=== PATIENT | female | born 1940 | race Caucasian/White ===

== ENCOUNTER → 2017-11-16 07:49 | Outpatient (CLI) | payer MEDICARE, OTHER, SELFPAY ==
[2017-11-16 10:28] LABS: AST(SGOT) 12 U/L (15-37); Alanine Aminotransfer ALT/SGPT 16 U/L (13-56); Anion Gap 9 (5-15); BUN 9 mg/dL (7-18); BUN/Creat Ratio 9.6 RATIO (10-20); Calcium,Total 9.2 mg/dL (8.5-10.1); Chloride 105 mmol/L (98-107); Cholesterol 145 mg/dL (200); Creatinine, Serum 0.93 mg/dL (0.55-1.02); EST Glomerular Filtration Rate 62 mL/min (>60); Est Glom Filt Rate - Afr Amer 75 mL/min (>60); Glucose 88 mg/dL (74-106); High Density Lipoprotein 48 mg/dL; Potassium 3.5 mmol/L (3.5-5.1); Sodium Level 140 mmol/L (136-145); Triglycerides 147 mg/dL; Very Low Density Lipoprotein 29 mg/dL (5-40)
== END ==
PROVIDERS: Family Provider Family Medicine; PCP Family Medicine; Visit Provider Family Medicine
DX: E78.5 Hyperlipidemia, unspecified (principal)
CPT/HCPCS: 36415; 80048; 80061; 84450; 84460

== ENCOUNTER → 2019-04-19 08:14 | Outpatient (CLI) | payer MEDICARE, OTHER, SELFPAY ==
--- NOTE | 2019-04-19 08:17 | BI_ITS ---
MAMMOGRAPHY - BILATERAL SCREENING REASON FOR EXAM: Female, 79 years old. Routine annual screening examination. PERTINENT HISTORY: Non-contributory. TECHNIQUE: Digital bilateral breast aubrey (3D mammographic acquisition) in the CC and MLO projections. 2-D mediolateral oblique (MLO) and craniocaudad (CC) views of both breasts were obtained. CAD: Full Field Digital Mammography with Computer Added Detection was performed. COMPARISON: Comparison is made with prior examination dated May 26, 2017 and June 12, 2015. FINDINGS: Breast Composition: There are scattered areas of fibroglandular density. There are no dominant masses or suspicious calcifications. Stable small benign-appearing bilateral axillary lymph nodes. No other significant abnormalities are identified. There has been no significant change since the prior study. BI/SCREEN MAMM (CAD) W/AUBREY BILAT IMPRESSION: Stable bilateral screening mammogram. Yearly follow-up mammogram recommended. (A) ASSESSMENT CATEGORY: BIRADS Category 2: Benign. A letter regarding these results will be sent to the patient by the facility within 30 days. Approximately 10% of breast cancers are not detected by mammography. A normal mammogram should not delay biopsy of a clinically suspicious abnormality. [id number] Electronically Signed: Jt Moon, at 9:39 EDT , Service support ,
== END ==
PROVIDERS: Family Provider Family Medicine; PCP Family Medicine; Referring Provider Nurse Practitioner Adult Health; Visit Provider Nurse Practitioner Adult Health
DX: Z12.31 Encounter for screening mammogram for malignant neoplasm of breast (principal)
CPT/HCPCS: 77063; 77067

== ENCOUNTER → 2021-04-09 08:06 | Outpatient (CLI) | payer MEDICARE, OTHER, SELFPAY ==
[2021-04-09 10:04] LABS: ALB/GLOB Ratio 0.9 RATIO (0.9-2.4); AST(SGOT) 13 U/L (15-37); Alanine Aminotransfer ALT/SGPT 17 U/L (13-56); Albumin, Serum 3.6 g/dL (3.2-5.0); Alkaline Phosphatase 54 U/L (45-117); Anion Gap 6 (5-15); BUN 9 mg/dL (7-18); BUN/Creat Ratio 8.8 RATIO (10-20); Calcium,Total 9.3 mg/dL (8.5-10.1); Chloride 103 mmol/L (98-107); Cholesterol 151 mg/dL (200); Creatinine, Serum 1.02 mg/dL (0.55-1.02); EST Glomerular Filtration Rate 55 mL/min (>60); Est Glom Filt Rate - Afr Amer 67 mL/min (>60); Globulin 3.8 g/dL (2.2-4.2); Glucose 91 mg/dL (74-106); High Density Lipoprotein 60 mg/dL; Potassium 3.5 mmol/L (3.5-5.1); Protein, Total 7.4 g/dL (6.4-8.2); Sodium Level 140 mmol/L (136-145); Triglycerides 111 mg/dL; Very Low Density Lipoprotein 22 mg/dL (5-40)
== END ==
PROVIDERS: PCP Family Medicine; Referring Provider Nurse Practitioner Family; Visit Provider Nurse Practitioner Family
DX: E78.5 Hyperlipidemia, unspecified (principal); I10 Essential (primary) hypertension
CPT/HCPCS: 36415; 80053; 80061

== ENCOUNTER → 2022-04-28 | Outpatient (CLI) | payer MEDICARE, OTHER, SELFPAY ==
[2022-04-28 11:34] LABS: Anion Gap 4 (5-15); BUN 11 mg/dL (7-18); BUN/Creat Ratio 12.8 RATIO (10-20); Calcium,Total 9.4 mg/dL (8.5-10.1); Chloride 106 mmol/L (98-107); Cholesterol 160 mg/dL (200); Creatinine, Serum 0.86 mg/dL (0.55-1.02); EST Glomerular Filtration Rate 67 mL/min (>60); Est Glom Filt Rate - Afr Amer 81 mL/min (>60); Glucose 97 mg/dL (74-106); High Density Lipoprotein 58 mg/dL; Potassium 3.5 mmol/L (3.5-5.1); Sodium Level 140 mmol/L (136-145); Triglycerides 134 mg/dL; Very Low Density Lipoprotein 27 mg/dL (5-40)
== END | disposition home or self-care (01) ==
LOC: MFPLAB 08:50
PROVIDERS: PCP Family Medicine; Referring Provider Family Medicine; Visit Provider Family Medicine
DX: I10 Essential (primary) hypertension (principal)
CPT/HCPCS: 36415; 80048; 80061

== ENCOUNTER → 2022-12-09 | Outpatient (CLI) | payer MEDICARE, OTHER, SELFPAY | END | disposition home or self-care (01) | LOC: LABSPEC 15:38 | PROVIDERS: PCP Family Medicine; Referring Provider Family Medicine; Visit Provider Family Medicine | DX: N89.8 Other specified noninflammatory disorders of vagina (principal) | CPT/HCPCS: 87070; 87077; 87186; 87205 ==

== ENCOUNTER 2023-02-01 06:47 | Observation (INO) | payer MEDICARE, OTHER, SELFPAY ==
--- NOTE | 2023-01-12 10:52 | EKG12_ITS ---
Test Reason : PRE-OP Blood Pressure : / mmHG Vent. Rate : 081 BPM Atrial Rate : 081 BPM P-R Int : 162 ms QRS Dur : 064 ms QT Int : 374 ms P-R-T Axes : 065 042 060 degrees QTc Int : 434 ms Normal sinus rhythm Low voltage QRS Borderline ECG Confirmed by MISA MCFADDEN, NICOLE ([id number]), writer editor ROBERTO MURRIETA ([id number]) on 01/12/2023 2:31:15 PM Referred By: Johnny Joel Confirmed By:NICOLE BYNUM MD
[2023-01-12 11:43] LABS: Absolute Lymphocyte Count 1.92 X10^3/uL (0.83-4.51); Absolute Neutrophil Count 3.5 X10^3/uL (2.0-7.7); Basophil# 0.04 X10^3/uL; Basophil% 0.7 % (0-1); Eosinophil# 0.19 X10^3/uL; Eosinophils% 3.1 % (0-5); Hematocrit 40.3 % (37-47); Lymphocyte # 1.92 X10^3/ul (0.83-4.51); Lymphocyte % 31.5 % (19-41); Mean Corp Hgb Conc 32.3 g/dL (32-36); Mean Corpuscular Hgb 30.7 pg (27.0-32.0); Mean Corpuscular Volume 95.3 fL (81-99); Mean Platelet Vol. 9.3 fl (6.2-12.0); Monocyte# 0.47 X10^3/uL; Monocyte% 7.7 % (0-10); NRBC Flagged by Analyzer 0 % (0-5); Neutrophil # 3.45 X10^3/uL (2.7-7.7); Neutrophil % 56.7 % (47-70); Platelet Count 360 K/mm3 (150-450); RBC Distribution Width CV 13.6 % (11.6-14.6); RBC Distribution Width SD 47.6 fl (35.1-43.9); Red Blood Count 4.23 M/mm3 (4.2-5.4); White Blood Count 6.1 K/mm3 (4.4-11.0)
[2023-01-12 12:09] LABS: Albumin, Serum 3.6 g/dL (3.2-5.0); Anion Gap 9 (5-15); BUN 13 mg/dL (7-18); BUN/Creat Ratio 13.1 RATIO (10-20); Calcium,Total 9.4 mg/dL (8.5-10.1); Chloride 102 mmol/L (98-107); EST Glomerular Filtration Rate 57 mL/min (>60); Est Glom Filt Rate - Afr Amer 69 mL/min (>60); Glucose 154 mg/dL (74-106); Potassium 3.3 mmol/L (3.5-5.1); Sodium Level 139 mmol/L (136-145)
[2023-01-12 12:11] LABS: Magnesium 2.2 mg/dL (1.6-2.6)
--- NOTE | 2023-01-20 16:42 | HP.PCM_ITS ---
History and Physical History and Physical? Patient Name: Carmella Hoang : 1940 From:? HEATHER EDWARDS PA-C? DATE OF PRE-OPERATIVE EXAM: 01/20/2023 DATE OF SURGERY:? 02/01/2023 SCHEDULED PROCEDURE: Left total hip arthroplasty? HISTORY OF PRESENT ILLNESS: Preoperative history and physical exam was performed on January 20, 2023.? This is an 82-year-old female who has had ongoing stiffness and limp with her left lower extremity for over 5 years.? She has not had significant pain associated with this.? Patient states the stiffness occasionally wakens her at nighttime.? She has tried home exercises in the past.? She denies past history of surgery on the left hip.? Her main complaint is stiffness in the hip.? X-rays reveal severe left hip severe [id number] erosive osteoarthritis with large cyst in the femoral head and flattening of the femoral head.? We have obtain surgical clearance from her primary care physician Dr. Shirley.? Patient has medical history pertinent for hypertension, hypercholesterolemia and hypokalemia.? She denies past history of DVT or pulmonary embolism.? There is been no recent chest pain, shortness of breath, fevers chills or recent infections.? After failing conservative measures and discussing all treatment options was Dr. Johnny Joel, the patient does wish to proceed with left total hip arthroplasty.? Patient is currently on hormone therapy and we will proceed with Rivaroxaban postoperatively for DVT prophylaxis for the first 2 weeks.? Patient states that she has always for many years taken aspirin 325 mg twice daily.? She has done this on her own.? She will stop the aspirin 5 days prior to surgery.? She will hold off of take an aspirin postoperatively while on the Rivaroxaban. REVIEW OF SYSTEMS: Review Of Systems: Constitutional: Denies change in appetite, fever and weight change. Cardiovasular: Denies chest pain, heart murmur and irregular heartbeat. Respiratory: Denies cough, pneumonia, shortness of breath, tuberculosis and wheezing. Gastrointestinal: Reports constipation, but denies diarrhea, heartburn, nausea, rectal itching, bloody stools and vomiting. Musculoskeletal: Denies leg swelling, pain, trouble walking and weakness. Skin: Denies Raynaud's, history of shingles and tattoo. Neurological: Denies ambulatory dysfunction, dizziness, numbness/tingling and tremor. Psychiatric: Denies anxiety, insomnia and stress. Hematologic/Lymphatic: Denies anemia, bleeding/bruising tendency and past transfusion. Reviewed and updated. PAST MEDICAL HISTORY: Advance Care Plan: Other Directive, POA Effective Date: 10/05/2022 Other Directive, LIVING WILL Effective Date: 10/05/2022 Past Medical History: Medical Problems: Hard of Hearing, High Blood Pressure, Hypercholesterolemia, Covid-19 Vaccine, Hypopotassium Accidents: None Surgical Hx: Hysterectomy - (2012) Anesthesia Complications: Nausea Assistive Devices: Dentures, Glasses Reviewed and updated. 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 Personal Habits:? Cigarette Use: Former.Smokeless Tobacco: Never Used Smokeless Tobacco.E-Cigarette Use: Never used.Alcohol: Denies use.Drug Use: Denies Use.Enjoy Exercising: Never Exercises. Reviewed, no changes. VITALS: Ht: 65.5 Wt: 180lb Wt k.648 BMI: 29.5 BP: 148/92 Pulse: 54 Resp: 12 T: 97.5 T: 36.4C Pain Level: 0 O2SatR: 99 ALLERGIES: Codeine? MEDICATIONS: Simvastatin 40 mg one tab once daily po, Hydrochlorothiazide 25 mg one tab once daily PO, Aspirin Adult 325 mg one tab PO bid, Iron 325 (65 Fe) MG one tab PO every other day, Doxazosin Mesylate 2 mg one tab once daily PO, Vitamin B12 1000 mcg 1 by mouth every day, Vitamin E 180 MG (400 Unit) one cap once daily PO, Multivitamin Adult? one tab PO once daily, Potassium Chloride Priscilla ER 20 Meq 1 by mouth every day, Biotin 10 mg one tab once daily PO, Estradiol/Norethindrone Acetate 1-0.5 mg one tab PO three days on, one day off, Clonidine HCL 0.2 mg one tab PO bid, Magnesium Oxide 400 mg 1/day, Calcium & Vitamin D3 Bonehealth? daily, Vitafusion D3? d3 50mg, Protein Drinks? 15mg daily PRE-OP EXAM:? General appearance:NORMAL? ? ? Other: Eyes: Conjunctivae and lids: NORMAL? Pupils: ERR Ears, Nose, Mouth, and Throat: NORMAL? Other: Inspection of lips, teeth and gums: NORMAL? ?Other: Neck: Examination of neck: no masses noted. Respiratory: Assessment of respiratory effort: NORMAL? ?Other: ?Auscultation of lungs: clear to auscultation no wheezes, rhonchi or rales. Cardiovascular:? Auscultation of heart: regular rate and rhythm, no murmurs, gallops or rubs. PHYSICAL EXAMINATION: Patient does walk with an antalgic gait.? Left hip range of motion 105 flexion, internal rotation 5, external rotation 25 with increased pain.? She has a 3 mm shorter left leg when compared to right leg.? Sensation intact to light touch. IMAGING STUDIES: Previous x-rays of the left hip reveal severe joint space narrowing, subchondral sclerosis, osteophyte formation consistent with severe stage IV [id number] erosive osteoarthritis.? There is also a large cyst in the femoral head and flattening of the femoral head IMPRESSION: 1.? Severe left hip osteoarthritis 2.? Hypertension 3.? Hypercholesterolemia 4.? Hypokalemia PLAN: Dr. Johnny Joel did discuss and review with the patient all treatment options including surgical versus nonsurgical options.? Patient does wish to proceed with the above-stated procedure.? Potential risks, benefits, and complications of the procedure were discussed in detail including but not limited to , infection, nerve and blood vessel damage, persistent pain, numbness, tingling, paresthesias, blood clot, pulmonary embolism, and requirement for possible further surgery.? The patient expressed full understanding and has no further questions for the doctor.? Patient does agree to proceed with the above-stated procedure and has signed the surgery consent form. POST-OP MEDICATION PLAN: DVT Prophylaxis: Due to patient being on hormone therapy we will proceed with Rivaroxaban 10 mg 1 tablet daily for 2 weeks postoperatively.? This will be followed by aspirin 325 mg twice daily for an additional 2 weeks.? This was discussed in detail with patient.? She voiced understanding. This dictation was created using voice recognition software. Phonetic and/or grammatical errors may exist. ___? I have re-examined the patient.? There are no clinical changes since date of exam. ___? See progress notes for changes. ___? Dictated on admission Date: ? ? ?Time: Signature:
[2023-02-01] VITALS (18 sets, daily range): BP systolic 84–157; BP diastolic 42–81; PULSE 56–96; RESP 16–18; TEMP 36.3–37; O2SAT 93–100; BMI 28.7
[2023-02-01] MEDS: Lactated Ringers 1,000 ML 125 ML IV ×4 (06:22→12:09)
[2023-02-01] MEDS: Celecoxib 200 MG Capsule 400 MG PO (06:23)
[2023-02-01] MEDS: Acetaminophen 500 MG Tablet 1000 MG PO ×3 (06:24→22:14)
[2023-02-01] MEDS: Gabapentin 600 MG Tablet PO (06:24)
[2023-02-01] MEDS: Magnesium 1 GM over 15 mins IV (06:25)
--- NOTE | 2023-02-01 06:30 | RAD_ITS ---
HISTORY: PAIN COMPARISON: Hip radiograph on same day TECHNIQUE: A total of 2 fluoroscopic images were saved without a radiologist present. FINDINGS: Images demonstrate left hip arthroplasty. Total fluoroscopy time: 6.7 seconds Cumulative dose: 1.15 mGy RAD/Hip 1 view with Pelvis IMPRESSION: Fluoroscopic assistance for left hip arthroplasty. Please see operative report for additional information. Electronically Signed: Song Singh MD at 7:30 EDT ,
[2023-02-01 06:33] LABS: Bedside Glucose 107 mg/dL (74-106)
--- NOTE | 2023-02-01 06:51 | PCM.OPRPT ---
Report of Operation Date of Procedure: 02/01/23 Pre-Operative Diagnosis: Left hip primary osteoarthritis Post-Operative Diagnosis: Left hip primary osteoarthritis Surgery/Procedure Performed:: Left minimally invasive direct anterior hip replacement Description of Surgical Findings:: Stable hip with equal leg lengths Surgeon: Johnny Joel motel manager: Daniel Betancourt Type of Anesthesia: General Anesthesiologist: Conner Reyna Special Medications: 2 g Ancef, 1 g TXA at incision, 1 g TXA closure, 10 mg Decadron, joint cocktail (5 mg Duramorph, 30 mL of 0.5% Ropivicaine, 1000 units of epinephrine, 30 mg of Toradol) Specimen's removed: Bony cuts Estimated Blood Loss (mL): 300 Fluids Replaced: 1000 ml Description of Procedure: Components used: 1. Insignia Jae femoral stem size 5 high offset 2. Jae trident 2 acetabular shell size 52 mm 3. Jae X3 polyethylene E 4. Jae Biolox delta 36 mm, 7.5 mm femoral head Brief history operative indications: 83 yo F who failed conservative measures for their hip osteoarthritis. X-rays were consistent with osteoarthritis including joint space narrowing, osteophyte formation and subchondral cysts. Total hip replacement was discussed with the patient with risks and benefits including but not limited to blood loss, DVTs, PEs, neurovascular damage, dislocation, general risks of anesthesia including loss of life. Patient demonstrated an understanding medical clearance is obtained the patient was consented for surgery. Procedure: On the date of procedure the patient's L hip was marked in the preoperative area. Patient was then taken back to the operating room where anesthesia assumed control of the C-spine and airway and administered anesthetic. Patient was transferred to the operating table and placed in the supine position. The hips were placed at the break of the bed and a sacral bump was placed. L The lower extremity was then prepped out in a sterile fashion using chlorhexidine while the surgeon scrubbed. The PA was vital in the positioning of the patient. Upon reentering the room the left lower extremity was draped in the standard orthopedic fashion and the incision was marked. A timeout was called and everyone agreed upon the side, the site, the procedure be performed, antibody given, and patient's identity. At this time incision was made through skin, subcutaneous tissue, and fat down to fascia. The fascia was then incised and the TFL was retracted laterally. A retractor was placed on the lateral border of the femoral neck. Attention was directed to the inferior portion of the approach and all crossing vessels were identified and appropriately coagulated. A retractor was then placed on the medial portion of the femoral neck. The anterior capsule was then cleared of all soft tissue and then H shaped capsulotomy was made. The retractors were then placed inside the capsule. The femoral neck was identified and a cleanup cut was made. At this time a power corkscrew was used to remove the femoral head. Attention was then turned toward the acetabulum where the soft tissues were appropriately retracted and the acetabulum was sequentially reamed to 52 mm. A 52 mm cup was then selected and impacted into place. Acetabular liner was impacted into place and locking mechanism was verified. The position of the acetabular cup was then verified under live fluoroscopy. Attention was then turned to the femur. Soft tissue releases on the medial and lateral femoral neck were appropriately done, the leg was externally rotated and lateralized. A Morley retractor was placed medially and proximally to the greater trochanter this allowed appropriate visualization and exposure of the femoral canal. Rongeour was then used to remove excess lateral bone. A canal finder and entry broach were used to open the proximal canal. Once we verified we were down the femoral canal we subsequently broached up to a size 5 femur. The appropriate neck was placed in the previously selected head was trialed with a 7.5 mm neck. Traction was pulled and the hip was reduced with internal rotation. Once it was appropriately reduced and stability was checked. There was minimal shuck, equal leg lengths and appropriate stability with hyperextension and external rotation as well as with 90? flexion and internal rotation. Fluoroscopy was then also used to verify the position of the components and leg lengths using the contralateral side for comparison. The trial components were then dislocated the proximal femur was again exposed and the components were removed from the wound. The final components were verified and opened. The wound was copiously irrigated out with normal saline. The acetabulum was checked for any residual debris. The final components were placed and impacted. Traction and internal rotation were again used to reduce the hip. After adequate reduction the hip remained stable with appropriate leg lengths. The final components were once again checked with live fluoroscopy and were found to be satisfactory. The wound was then copiously irrigated with normal saline once more, and hemostasis was obtained. Closure was then done using #1 Vicryl runner to close the fascia. A 2-0 vicryl interuppted sutures were used to close the subcutaneous skin. A 3-0 Monocryl and Steri-Strips were used for final skin closure. A Silverlon dressing was placed. Patient was awakened by anesthesia and transferred [facility]. Patient was then transferred to the PACU for recovery. During the course of the procedure the physician merchandise presentation associate (PE) played a vital role. Their intimate knowledge of my steps in the procedure aided in safe and expedient completion of the procedure. The PE played a vital rolls in positioning particularly in obtaining the appropriate positioning of the sacral bump. The PE was also vital in the retraction of soft tissues during the exposure and especially the femoral work as this is a vital part of the procedure to prevent complications and fractures. The PE was also vital and protecting soft tissues during times of bony cuts and reaming. He also played a vital role in closure with my direct supervision. The PE was also important during reduction and dislocation of the joint and trials intraoperatively. Postoperative plan: Patient will get 24 hours postop antibiotics. Patient will get in-house physical therapy and will be weight-bear as tolerated. Patient will follow up in office in 2 weeks for a wound check and x-rays. Xarelto 10 mg daily for 2 weeks followed by aspirin 81 mg twice daily for 2 weeks secondary to hormone replacement therapy. Complications No intraoperative complications Admit VTE Documentation VTE Present on Admission: No VTE Mechan Device Prophylaxis: SCD's and Thigh High LESLIE Hose VTE Pharm Prophylaxis ordered?: Yes
[2023-02-01] MEDS: Cefazolin 2 GM in 0.9% Normal Saline 100 ML IV (07:30)
--- NOTE | 2023-02-01 07:30 | HIP_PTH ---
PATIENT: TIFFANY HINOJOSA LOC: MS3 U#:[id number] AGE/SX: 83/F ROOM: [facility] [place] RE02/01/[address]: Dr. Johnny Joel MD : 1940 BED: 1 DIS: 02/02/2023 SPEC #: [id number] RECD: 02/01/23 11:32 STATUS: ONEL DELUCA #: [id number] SANDRITA: 02/01/23 07:[address]: Johnny Joel DEPT: SURGICAL PATHOLOGY RECD BY: Demetria Vo ENTERED: 02/01/23 13:28 SP TYPE: TOTAL HIP OTHR DR: Dr. Franca Shirley MD Tissues: Hip, NOS Procedures: Decalcification bone/plaque Surgery Specimen Level IV HEADER OPERATION: ERAS, total hip anterior approach PRE-OP DIAGNOSIS: Left hip primary osteoarthritis TISSUE SUBMITTED: Bone - left hip MICROSCOPIC DIAGNOSIS Bone and tissue of left hip, total hip resection: Severe degenerative joint disease. AM:shamar 02/06/2023 MICROSCOPIC DESCRIPTION Slides are reviewed. GROSS DESCRIPTION Received is one container labeled with the patient's name and designated bone left hip. The specimen consists of a schofield femoral head measuring 5.5 x 5.0 x 5.0 cm. The articular surface displays prominent osteophyte formation, eburnation and bone erosion. Also present in the specimen container are multiple irregular fragments of bone reamings and bone fragments measuring in aggregate 7.0 x 5.0 x 2.0 cm. Dairy Lab Technician sections are submitted in two cassettes after decalcification as follows: 1 - bone reamings, 2 - bone. / AM:shamar 02/01/2023 TC:5 CPT: 61837, 21600
[2023-02-01] MEDS: dexAMETHasone 10 MG/ML Vial IV (07:40)
[2023-02-01] MEDS: TXA 1000mg in NS100 100ml (IVPB at Closure) 660 MG IV (07:40)
[2023-02-01] MEDS: TXA 1000mg in NS100 100ml (IVPB at Incision) 660 MG IV (08:33)
[2023-02-01] MEDS: JPS (Morphine 10mg/ml) OPERA.SITE (08:43)
--- NOTE | 2023-02-01 09:28 | RAD_ITS ---
STUDY: X-RAY - PELVIS AND LEFT HIP REASON FOR EXAM: Female, 83 years old. Post Op -- AP both hips on single saravanan/lateral of op hip PACU TECHNIQUE: 2 views of the pelvis and hip. COMPARISON: None. FINDINGS: The patient is status post left total hip replacement. There is good alignment. Postoperative soft tissue changes. RAD/Hip Min 2 Views (Portable) IMPRESSION: The patient is status post left total hip replacement. There is good alignment. Postoperative soft tissue changes. Electronically Signed: Jt Moon MD at 9:42 EDT ,
[2023-02-01] MEDS: proMETHazine 25 MG/ML Syringe 12.5 MG IM (12:54)
--- NOTE | 2023-02-01 13:14 | PCM.CONS.GEN ---
Assessment & Plan Assessment/Plan (1) Arthritis: (2) Hypertension: QUALIFIERS: Hypertension type: primary hypertension Qualified Code(s): I10 - Essential (primary) hypertension PLAN: Plan This 84-year-old female being admitted for elective left hip total replacement. 1. Left hip primary osteoarthritis status post left minimally invasive direct anterior hip replacement on 02/01/2023: Patient just returned from surgery. Mild lethargy and nausea from anesthesia. Pain control. Conservative symptomatic management for nausea. Patient on rivaroxaban 10 mg daily for DVT prophylaxis. Incentive spirometry. PT and OT ordered. 2. High protein: Current BP is 106/83. Patient blood pressure was on lower side during anesthesia, systolic 80s. Currently getting Ringer lactate at 125 mill per hour. Hold antihypertensive medication, patient is on HCTZ 12.5 mg twice daily. Start tomorrow if blood pressure is in the 130/80 with HCTZ 12.5 mg once daily. 3. Dyslipidemia: Patient on atorvastatin 20 mg daily at bedtime 4. Other comorbidities include history of migraine headache, prolapsed bladder, chronic constipation and former smoker: Stool softener senna S 2 tablet twice daily. MiraLAX 17 g daily. Patient currently not having headache and no acute issues with history of migraine headache. DVT prophylaxis: On rivaroxaban 10 mg daily HPI Consult Data Date of Consult: 02/01/23 HPI Narrative HPI Narrative: TIFFANY HINOJOSA, is a 83 F was admitted for elective left total hip replacement. Patient has left lower extremity stiffness limping and discomfort for more than 5 years. Patient did not complain of significant pain. Patient failed conservative management including home exercise PT. X-ray showed severe left hip [id number] erosive arthritis with large cyst with femoral head. Past medical history: Hypertension, dyslipidemia and hypokalemia. No history of DVT or pulmonary embolism. Patient just returned from surgery and she is mild nauseated but no vomiting. She had Zofran. Denies chest pain pressure tightness. No shortness of breath. No dizziness or lightheadedness. She has mild lethargy/sleepy from anesthesia. No fever or recent URI or DVT. [facility] Medical History (Updated 02/01/23 @ 14:[address] Denis Freire MD) Arthritis Bladder disease Constipation Former smoker High cholesterol Hypertension Migraine headache Post-menopausal Wears dentures Wears glasses Wears hearing aid Home Medications Calcium 600 + D(3) 600 mg PO DAILY 01/06/23 [History Last Taken 01/26/23] Potassium-99 99 mg PO DAILY 01/06/23 [History Last Taken 01/26/23] VITAFUSION 50 mg PO DAILY 01/06/23 [History Last Taken 01/26/23] Vitamin L64-[id number] 1,000 mg PO DAILY 01/06/23 [History Last Taken 01/26/23] aspirin 650 mg PO DAILY 01/06/23 [History Last Taken 01/26/23] biotin 10,000 mg PO .EVERY 3 DAYS 01/06/23 [History Last Taken 01/26/23] clonidine HCl 0.2 mg tablet 0.2 mg PO BID 01/06/23 [History Last Taken 02/01/23 05:00] docusate sodium 100 mg capsule (Colace) 100 mg PO DAILY 01/06/23 [History Last Taken 01/30/23] doxazosin 2 mg tablet 2 mg PO QHS 01/06/23 [History Last Taken 01/31/23] estradiol-norethindrone acet 0.5 mg-0.1 mg tablet 1 tab PO .EVERY 3 DAYS 01/06/23 [History Last Taken 01/31/23] ferrous sulfate 325 mg (65 mg iron) tablet (iron) 325 mg PO QODAY 01/06/23 [History Last Taken 01/26/23] food supplemt, lactose-reduced (Nutritional Shake oral liquid) 15 ml PO DAILY 01/06/23 [History Last Taken 01/26/23] hydrochlorothiazide 25 mg tablet 12.5 mg PO BID 01/06/23 [History Last Taken 01/31/23] magnesium 400 mg PO DAILY 01/06/23 [History Last Taken 01/26/23] multivitamin (Daily Multi-Vitamin tablet) 1 tab PO DAILY 01/06/23 [History Last Taken 01/26/23] peg [id number] 1 %-0.2 %-0.2 % eye drops (Dry Eye Relief) 1 drp EACH EYE DAILY 01/06/23 [History Last Taken 01/31/23] simvastatin 40 mg tablet 40 mg PO QHS 01/06/23 [History Last Taken 01/31/23] Allergy/AdvReac Type Severity Reaction Status Date / Time codeine AdvReac Mild Vomiting Verified 01/06/23 09:57 Family History (Updated 02/01/23 @ 14:[address] Denis Freire MD) Other Arthritis Hypertension Surgical History Hx of hysterectomy Hx of left cataract extraction Hx of right cataract extraction Social History Smoking Status: Former smoker ROS ROS Narrative Constitutional: Chronic left hip stiffness and limping. No fever. HEENT: Reports systems reviewed and no addt'l complaints, except as documented Respiratory/Chest: No acute shortness of breath or respiratory distress or wheezing. CVS: Chest pain pressure or tightness. Gastrointestinal: Mild nausea denies coffee ground emesis, hematemesis or vomiting Genitourinary: No catheter. Denies burning urination or new urinary tract symptoms Musculoskeletal: Chronic left hip primary osteoarthritis and limited range of motion. No acute injury Neurologic: Denies seizure-like symptoms. No history of stroke. skin: No ulcer. No rash Endocrinology: Reports systems reviewed and no addt'l complaints, except as documented Hematologic/Lymphatic: Reports systems reviewed and no addt'l complaints, except as documented Rest 14 ROS are negative except as mentioned in HPI Physical Exam Narrative General: Mild neurology and lethargy from anesthesia. Mild nauseated. HEENT: Atraumatic, PERRLA, EOMI, Normocephalic Oral: Oral mucosa dry. No Gingival or Mucosal Lesions/ Ulcerations Neck: Supple, No JVD, Negative Carotid Bruits Lungs: Air entry diminished in bilateral lung bases. No crepitation/rhonchi Cardiovascular: Regular rate, Regular Rhythm, Normal S1, Normal S2, No murmurs Abdomen: Bowel Sounds Present, Soft, Non Tender, Non-Distended : No renal angle tenderness. No suprapubic tenderness. Extremities: No edema, Capillary Refill Less than 3 Seconds Skin: No rashes, No breakdown Musculoskeletal: Left hip THR. Surgical dressing is dry. No hematoma or bruise. No Tenderness to Palpation of other joints or Extremities Neurological: Cranial nerves II-XII grossly intact, DTR 2+/4. No acute focal neurological deficit Psych/Mental Status: Flat affect, lethargy Lab / Micro Data 01/12/23 11:10 01/12/23 11:10 Labs: Laboratory Results - last 24 hr 02/01/23 05:53: POC Glucose 107 H Radiology Impression Hip X-Ray 02/01/23 09:28 IMPRESSION: The patient is status post left total hip replacement. There is good alignment. Postoperative soft tissue changes. Electronically Signed: Jt Moon MD at 9:42 EDT , Charges/Coding Visit Charges Office Visits / Consults: 09234 OP Consult L4
[2023-02-01] MEDS: Cefazolin 1 GM/50 ML BAG IV ×2 (15:13→23:30)
--- NOTE | 2023-02-01 15:53 | CASEMGMT ---
IVETTE PHOENIX Assessment: Face to Face with pt for initial transition planning/care coordination assessment. IVETTE PHOENIX introduced self and role at [facility], pt voices understanding and consents to assessment. Pt is A/O x3, drowsy but answers all questions appropriately at this time. Care providers, pharmacy, and demographics verified/updated. Admitting Dx: Lt total hip anterior approach PCP:[place] Specialists:tootie Joel [facility]acy: [facility] Insurance: [facility], [employer] Prescription Benefit: yes LNOK: [employer] Widder, dtr Living Arrangements: Pt lives alone in a single story home with 1 step to enter. Pt reports she is typically I in ADL's and denies concerns at home. Pt granddtr is staying with her for at least the weekend to assist pt. Pt denies concerns at home. Transportation: Pt drives self and denies concerns with transportation. Pt has friends/family lined up to take her to medical appts. DME/HHC/SNF: Pt has a FWW and BSC at home. She has a shower chair that she can borrow if need be. Pt does not use AD. Pt denies hx of HHC or SNF stays. Pt states no concerns with going home at time of dc. Pt has outpt therapy set up at [facility] on Monday. Pt states no further concerns/needs. CM to follow. Advised pt to ask CM if any further question/concerns/needs arise, voices understanding. Pt Goal: Home with granddtr assistance and outpt therapy already set up Plan: Home with granddtr assistance and outpt therapy already set up, pending therapy evals.
[2023-02-01] MEDS: Senna/Docusate Sodium 1 Tablet 2 TABLET PO (22:14)
[2023-02-01] MEDS: Atorvastatin Calcium 20 MG Tablet PO (22:14)
[2023-02-01] MEDS: cloNIDine HCl 0.2 MG Tablet PO (22:14)
[2023-02-01] MEDS: Doxazosin 1 MG Tablet 2 MG PO (23:29)
[2023-02-02 00:35] VITALS: BMI 28.7
[2023-02-02 04:43] VITALS: BMI 28.7
[2023-02-02 05:00] VITALS: BP 143/73; PULSE 80; RESP 18; TEMP 37.1; O2SAT 97
[2023-02-02] MEDS: Acetaminophen 500 MG Tablet 1000 MG PO ×2 (05:31→13:42)
[2023-02-02] MEDS: Rivaroxaban 10 MG Tablet PO (05:31)
[2023-02-02 06:02] LABS: Hematocrit 33.8 % (37-47); Hemoglobin 10.9 g/dL (12.0-15.0); Mean Corp Hgb Conc 32.2 g/dL (32-36); Mean Corpuscular Hgb 30.8 pg (27.0-32.0); Mean Corpuscular Volume 95.5 fL (81-99); Mean Platelet Vol. 9.6 fl (6.2-12.0); Platelet Count 361 K/mm3 (150-450); RBC Distribution Width CV 13.6 % (11.6-14.6); RBC Distribution Width SD 47.8 fl (35.1-43.9); Red Blood Count 3.54 M/mm3 (4.2-5.4); White Blood Count 17.5 K/mm3 (4.4-11.0)
[2023-02-02 06:41] LABS: Anion Gap 5 (5-15); BUN 12 mg/dL (7-18); BUN/Creat Ratio 13.5 RATIO (10-20); Calcium,Total 8.6 mg/dL (8.5-10.1); Chloride 109 mmol/L (98-107); Creatinine, Serum 0.89 mg/dL (0.55-1.02); EST Glomerular Filtration Rate 65 mL/min (>60); Est Glom Filt Rate - Afr Amer 78 mL/min (>60); Estimated Creatinine Clearance 45.62 ml/min; Glucose 96 mg/dL (74-106); Potassium 3.7 mmol/L (3.5-5.1); Sodium Level 140 mmol/L (136-145)
[2023-02-02 07:30] VITALS: O2SAT 98
[2023-02-02] MEDS: Multivitamins,Therapeutic Tablet 1 TABLET PO (08:34)
[2023-02-02] MEDS: hydroCHLOROthiazide 12.5mg 12.5 MG PO (08:35)
[2023-02-02] MEDS: Calcium Carb/Vitamin D 1 TABLET Tablet PO (08:35)
[2023-02-02] MEDS: Magnesium Chloride 64 MG Delay Rel.Tablet 128 MG PO (08:36)
[2023-02-02] MEDS: cloNIDine HCl 0.2 MG Tablet PO (08:38)
[2023-02-02] MEDS: Senna/Docusate Sodium 1 Tablet 2 TABLET PO (08:39)
[2023-02-02] MEDS: Ensure Surgery 237 ML LIQUID PO (08:46)
[2023-02-02] MEDS: Famotidine 20 MG Tablet PO (08:46)
[2023-02-02] MEDS: Aspirin 325 MG Tablet 650 MG PO (08:46)
[2023-02-02] MEDS: Polyethylene Glycol 3350 17 GM PACKET PO (08:48)
[2023-02-02 08:54] VITALS: BP 146/77; PULSE 79; RESP 16; TEMP 37.1; O2SAT 97; BMI 28.7
--- NOTE | 2023-02-02 10:44 | PCM.PN.HOSP ---
Reason for Visit Reason for Visit: Diagnoses Essential (primary) hypertension (02/01/23) Unspecified osteoarthritis, unspecified site (02/01/23) Encounter for other preprocedural examination (02/01/23) Subjective Subjective Doing well today, got up and walked around and reported initially hurt but then began feeling better. No acute medical complaints Objective Data Objective Data Vital Signs: Vital Signs Temp Pulse Resp BP Pulse Ox O2 Del Method O2 Flow Rate 98.7 F 79 16 146/77 H 97 Room Air 2 02/02/23 08:54 02/02/23 08:54 02/02/23 08:54 02/02/23 08:54 02/02/23 08:54 02/02/23 09:59 02/01/23 14:43 FiO2 2 02/01/23 11:30 Oxygen Flow Rate (L/min) 2 Oxygen Delivery Method Room Air Weight: 80.739 kg Body Mass Index (BMI) 28.7 Intake & Output: Intake and Output for Last 24 Hours 01/31/23 02/01/23 02/02/23 23:59 23:59 23:59 Intake Total 4932 / 6932 2050 / 2050 Output Total 400 / 2100 1700 / 1700 Balance 4532 / 4832 350 / 350 Lab / Micro Data 02/02/23 05:17 02/02/23 05:17 Labs: Laboratory Results - last 24 hr 02/02/23 05:17: WBC 17.5 H, RBC 3.54 L, Hgb 10.9 L, Hct 33.8 L, MCV 95.5, MCH 30.8, MCHC 32.2, RDW Std Deviation 47.8 H, RDW Coeff of Shukri 13.6, Plt Count 361, MPV 9.6, Sodium 140, Potassium 3.7, Chloride 109 H, Carbon Dioxide 26.0, Anion Gap 5, BUN 12, Creatinine 0.89, Estim Creat Clear Calc 45.62, Est GFR (MDRD) Af Amer 78, Est GFR (MDRD) Non-Af 65, BUN/Creatinine Ratio 13.5, Glucose 96, Calcium 8.6 Micro: Microbiology 01/12/23 11:10 Swab (Method) Nasal Screen MRSA/MSSA - Final Radiography Diagnostic Testing: Radiology Impression Hip/Pelvis X-Ray 02/01/23 06:30 IMPRESSION: Fluoroscopic assistance for left hip arthroplasty. Please see operative report for additional information. Electronically Signed: Song Singh MD at 7:30 EDT , Hip X-Ray 02/01/23 09:28 IMPRESSION: The patient is status post left total hip replacement. There is good alignment. Postoperative soft tissue changes. Electronically Signed: tJ Moon MD at 9:42 EDT , Physical Exam Narrative General: Alert, oriented, no apparent distress HEENT: Atraumatic, normocephalic Eyes: Anicteric, normal conjunctiva, extraocular movements grossly intact Neck: Supple Respiratory: Clear to auscultation bilaterally, normal respiratory effort Cardiovascular: Regular rate and rhythm GI: Soft, nontender, nondistended Extremities: No edema Musculoskeletal: Moving all extremities Neuro: No overt focal neurological deficits Skin: No rashes appreciated Psych: Cooperative Assessment & Plan Assessment/Plan (1) Arthritis: (2) Hypertension: QUALIFIERS: Hypertension type: primary hypertension Qualified Code(s): I10 - Essential (primary) hypertension PLAN: Plan This 84-year-old female being admitted for elective left hip total replacement. 1. Left hip primary osteoarthritis status post left minimally invasive direct anterior hip replacement on 02/01/2023: Patient just returned from surgery. Mild lethargy and nausea from anesthesia. Pain control. Conservative symptomatic management for nausea. Patient on rivaroxaban 10 mg daily for DVT prophylaxis. Incentive spirometry. PT and OT ordered. -02/02: Patient doing very well today, further dispo per primary 2. High blood pressure: Current BP is 106/83. Patient blood pressure was on lower side during anesthesia, systolic 80s. Currently getting Ringer lactate at 125 mill per hour. Hold antihypertensive medication, patient is on HCTZ 12.5 mg twice daily. Start tomorrow if blood pressure is in the 130/80 with HCTZ 12.5 mg once daily. -8/3: Continue HCTZ once daily, patient also on her home clonidine 3. Dyslipidemia: Patient on atorvastatin 20 mg daily at bedtime 4. Other comorbidities include history of migraine headache, prolapsed bladder, chronic constipation and former smoker: Stool softener senna S 2 tablet twice daily. MiraLAX 17 g daily. Patient currently not having headache and no acute issues with history of migraine headache. -02/02: Patient with no medical complaints today, okay to discharge from medical perspective. DVT prophylaxis: On rivaroxaban 10 mg daily Charges/Coding Visit Charges Inpatient E&M: 97492 Subs Hosp L1
--- NOTE | 2023-02-02 11:02 | PN.ORTHO_ITS ---
Subjective Subjective The patient was sitting in bedside chair upon examination. Patient denies any chest pain, shortness of breath, dizziness, lightheadedness, nausea or vomiting, or calf pain. Pain is controlled on medications. No adverse overnight events. Patient did have some lower blood pressures yesterday and medications were held. Case was discussed with medicine and with her blood pressure improving she can go back to her normal medications upon discharge. She tolerated therapy very well. Patient currently is on Xarelto postoperatively due to hormone therapy. Overall she is doing well this morning with no significant complaints. Some thigh soreness. She does wish to try to go home today. Objective Data Objective Data Vital Signs: Vital Signs Temp Pulse Resp BP Pulse Ox O2 Del Method O2 Flow Rate 98.7 F 79 16 146/77 H 97 Room Air 2 02/02/23 08:54 02/02/23 08:54 02/02/23 08:54 02/02/23 08:54 02/02/23 08:54 02/02/23 09:59 02/01/23 14:43 FiO2 2 02/01/23 11:30 Oxygen Flow Rate (L/min) 2 Oxygen Delivery Method Room Air Weight: 80.739 kg Body Mass Index (BMI) 28.7 Intake & Output: Intake and Output for Last 24 Hours 01/31/23 02/01/23 02/02/23 23:59 23:59 23:59 Intake Total 4932 / 6932 2050 / 2050 Output Total 400 / 2100 1700 / 1700 Balance 4532 / 4832 350 / 350 Lab / Micro Data 02/02/23 05:17 02/02/23 05:17 Labs: Laboratory Results - last 24 hr 02/02/23 05:17: WBC 17.5 H, RBC 3.54 L, Hgb 10.9 L, Hct 33.8 L, MCV 95.5, MCH 30.8, MCHC 32.2, RDW Std Deviation 47.8 H, RDW Coeff of Shukri 13.6, Plt Count 361, MPV 9.6, Sodium 140, Potassium 3.7, Chloride 109 H, Carbon Dioxide 26.0, Anion Gap 5, BUN 12, Creatinine 0.89, Estim Creat Clear Calc 45.62, Est GFR (MDRD) Af Amer 78, Est GFR (MDRD) Non-Af 65, BUN/Creatinine Ratio 13.5, Glucose 96, Calcium 8.6 Micro: Microbiology 01/12/23 11:10 Swab (Method) Nasal Screen MRSA/MSSA - Final Radiography Diagnostic Testing: Radiology Impression Hip/Pelvis X-Ray 02/01/23 06:30 IMPRESSION: Fluoroscopic assistance for left hip arthroplasty. Please see operative report for additional information. Electronically Signed: Song Singh MD at 7:30 EDT , Hip X-Ray 02/01/23 09:28 IMPRESSION: The patient is status post left total hip replacement. There is good alignment. Postoperative soft tissue changes. Electronically Signed: Jt Moon MD at 9:42 EDT , Physical Exam Narrative Vital signs stable and afebrile. Blood pressures have stabilized Left hip is soft and supple SCDs and LESLIE hose are in place bilaterally Patient is able to plantarflex and dorsiflex actively. Sensation is intact to light touch to saphenous, sural, superficial and deep peroneal, and tibial distribution. Dressing is clean dry and intact. Negative Homans bilaterally, negative signs and symptoms of DVT. Const alert, oriented x3 and no apparent distress Assessment & Plan Assessment/Plan (1) S/P total left hip arthroplasty: PLAN: Plan 1. S/P left direct anterior total hip arthroplasty POD #1 2. Continue Pain Medications: Tylenol and oxycodone 3. DVT Prophylaxis: Xarelto 10 mg once daily for 2 weeks postoperatively due to hormone therapy. After 2 weeks she will go back to her normal aspirin 325 mg twice daily. 4. PT/OT: Weightbearing as tolerated with walker. Patient did well with physical therapy today 5. H & H: 10.9/33.8, asymptomatic. Monitoring patient's hemoglobin and hematocrit with postoperative anemia without any intra operative complications. At this time no treatment is required. 6. Reactive leukocytosis: Currently 17.5, afebrile. Patient did receive Decadron intraoperatively 7. Continue postoperative medical management per medicine: Case was discussed with medicine and she is okay with patient resuming her normal blood pressure medication. I explained to the patient to continue to monitor this while at home and if any complications with her blood pressure she is to contact her primary care physician 8. Encouraged Incentive Spirometry 9. Disposition: Plan will be for discharge home today as patient is medically stable, tolerates therapy and her pain is well controlled. She has outpatient physical therapy established. She would like her medications E scribed to [facility]. She will follow-up per postoperative instructions. She will contact her office upon discharge with any concerns or questions. We did discuss her blood pressure and she will continue to monitor this over the next several days. Contact primary care physician with any complications. Patient also has her own stool softeners at home that she will take. I have reviewed the [place] Automated Rx Reporting System (OARRS) report for this patient for refill pattern and other prescriber involvement as part of the appropriate surveillance for the provision of acute and chronic controlled medications. The report was requested and reviewed on the date of this entry and was considered in the prescribing process. This dictation was created using voice recognition software. Phonetic and/or grammatical errors may exist.
--- NOTE | 2023-02-02 11:07 | DCINST_ITS ---
Discharge Instructions Diet Discharge Diet: No restrictions Activity Discharge Activity: May Not Drive (Until you can walk 100 feet without the use of cane or walker and off all narcotics) May shower in (days): 1 (only if incision is dry and without drainage. Do NOT soak/submerge in tub/pool/grant/stream/hot tub.)) Ice area for (Minutes): 20 (Every 1-2 hours while awake[address] barrier between ice and skin.) Weight Bearing Status: Weight bearing as tolerated Keep extremity elevated above heart level: Operative Extremity Additional Activity Instructions:: Follow [facility] Post-op Instructions. Once postoperative dressing has been removed only use gentle soap and water over the incision. Do not use any ointments, Neosporin, salves, alcohol pads over the incision for 6 weeks postoperatively. Do not submerge underwater for 6 weeks postoperatively. Wear elastic stockings for 2 weeks. Do NOT use alcohol with narcotic pain medication. Do NOT make important decisions while taking narcotic medication. If you have problems with taking your medication (rash, itching, nausea, etc.) call the office at once. Dressing / Incision Call your doctor if your incision/area has: Continuous Slow Oozing, Sudden Increased Bleeding, Increased Pain/ Swelling, Increased Redness and Foul Smelling Discharge Call your doctor if you observe: Fever of 101 or Higher, Shortness of breath, Chest pain, Calf discomfort and Uncontrolled pain Remove Dressing in: 4 days (Okay to remove dressing on February 06, 2023) Additional Dressing/Incision Instructions:: Follow [facility] Post-op Instructions. Once postoperative dressing has been removed, only use gentle soap and water over the incision. Do not use any ointments, Neosporin, salves, alcohol pads over the incision for 6 weeks postoperatively. Do not submerge underwater for 6 weeks postoperatively. Continue with LESLIE hose/elastic stockings for 2 weeks postoperatively. May remove at nighttime but needs to be placed back on the leg during the day. Do NOT use alcohol with narcotic pain medication. Do NOT make important decisions while taking narcotic medication. If you have problems with taking your medication (rash, itching, nausea, etc.) call the office at once. Follow Up Care Test Results: Test results from this visit will be discussed in further detail at your follow- up appointment, if applicable. Discharge Plan Admission Admit Date/Time: 02/01/23 06:47 Attending Provider: Johnny Jole Primary Care Provider: Franca Shirley Consulting Providers: Crys Scruggs Discharge Orders/Prescriptions Prescriptions: New acetaminophen 500 mg Tablet 1,000 mg PO Q8 14 Days Qty: 84 0RF Rx Instructions: Do not take more than 3000 mg Tylenol in a 24-hour period. oxycodone 5 mg Tablet 5 mg PO Q4H PRN PRN (Reason: Pain Score 4-10) 7 Days Qty: 28 0RF Xarelto 10 mg Tablet 10 mg PO DAILY@0600 14 Days Qty: 14 0RF Rx Instructions: Take for 2 weeks postoperatively due to a previous history of DVT Continued clonidine HCl 0.2 mg tablet 0.2 mg PO BID hydrochlorothiazide 25 mg tablet 12.5 mg PO BID simvastatin 40 mg tablet 40 mg PO QHS ferrous sulfate [iron] 325 mg (65 mg iron) tablet 325 mg PO QODAY Vitamin [id number] 1,000 mg PO DAILY multivitamin [Daily Multi-Vitamin] Tablet 1 tab PO DAILY Potassium-99 99 mg PO DAILY doxazosin 2 mg tablet 2 mg PO QHS magnesium 400 mg PO DAILY Calcium 600 + D(3) 600 mg PO DAILY docusate sodium [Colace] 100 mg capsule 100 mg PO DAILY VITAFUSION 50 mg PO DAILY Nutritional Shake Liquid 15 ml PO DAILY estradiol-norethindrone acet 0.5-0.1 mg tablet 1 tab PO .EVERY 3 DAYS biotin 10,000 mg PO .EVERY 3 DAYS Dry Eye Relief 1-0.2-0.2 % drops 1 drp EACH EYE DAILY Discontinued aspirin 650 mg PO DAILY Referrals / Follow Up: Physical,Therapy [Other] - 02/06/23 10:00 am Franca Shirley MD [Primary Care Provider] - Daniel Betancourt PA-C [Med Staff - [facility] Practice [facility]] - 02/17/23 9:45 am Disposition Disposition (needs filled in before D/C Order can be placed): Home, Self Care
--- NOTE | 2023-02-02 11:27 | CASEMGMT ---
IVETTE PHOENIX in to discuss IRENE form with patient. IVETTE PHOENIX explained IRENE form, patient voiced understanding. Pt signed form and filed in chart. Pt provided with a copy of signed IRENE form. Patient had no further questions or concerns at this time. Pt is anxious to go home and is excited about the distance she walked with therapy today.
--- NOTE | 2023-02-02 11:43 | CASEMGMT ---
TC to [facility], pt cost for xarelto is $21.93.
--- NOTE | 2023-02-02 12:05 | PHA.DC_ITS ---
Pharmacy [facility] Service has performed discharge medication reconciliation and counseling for this patient. The patient was counseled on the following discharge medications and changes in medications for homegoing were reviewed. 1. XARELTO 2. ACETAMINOPHEN 3. OYCODONE The Reason for Use, instructions for use, and potential side effects were reviewed for all new medications. The patient's questions regarding all of their medications were answered. The patient was able to verbally demonstrate an understanding of their discharge medications. The patient's discharge medication list was reviewed for discrepancies and discrepancies were resolved. Patient counselled by Ada Hess PharmD Candidate Medications at Discharge Home Medications Calcium 600 + D(3) 600 mg PO DAILY 01/06/23 Potassium-99 99 mg PO DAILY 01/06/23 VITAFUSION 50 mg PO DAILY 01/06/23 Vitamin [id number] 1,000 mg PO DAILY 01/06/23 biotin 10,000 mg PO .EVERY 3 DAYS 01/06/23 clonidine HCl 0.2 mg tablet 0.2 mg PO BID 01/06/23 docusate sodium 100 mg capsule (Colace) 100 mg PO DAILY 01/06/23 doxazosin 2 mg tablet 2 mg PO QHS 01/06/23 estradiol-norethindrone acet 0.5 mg-0.1 mg tablet 1 tab PO .EVERY 3 DAYS 01/06/23 ferrous sulfate 325 mg (65 mg iron) tablet (iron) 325 mg PO QODAY 01/06/23 food supplemt, lactose-reduced (Nutritional Shake oral liquid) 15 ml PO DAILY 01/06/23 hydrochlorothiazide 25 mg tablet 12.5 mg PO BID 01/06/23 magnesium 400 mg PO DAILY 01/06/23 multivitamin (Daily Multi-Vitamin tablet) 1 tab PO DAILY 01/06/23 peg [id number] 1 %-0.2 %-0.2 % eye drops (Dry Eye Relief) 1 drp EACH EYE DAILY 01/06/23 simvastatin 40 mg tablet 40 mg PO QHS 01/06/23 acetaminophen 500 mg tablet 1,000 mg (2 x 500 mg) PO Q8 14 days #84 tabs 02/02/23 oxycodone 5 mg tablet 5 mg PO Q4H PRN PRN Pain Score 4-10 7 days #28 tabs 02/02/23 rivaroxaban 10 mg tablet (Xarelto) 10 mg PO DAILY@0600 14 days #14 tabs 02/02/23
--- NOTE | 2023-02-02 12:56 | CHAPLAIN ---
Type of Pastoral Visit _x__ Initial Visit ___ Follow-up Visit ___ On-call Visit ___ General Patient Visit ___ Spiritual Assessment ___ Family Conference ___ Bereavement ___ Rapid Response ___ Code Blue ___ Other (describe below) Pastoral Care Referral From _x__ Patient ___ Family ___ Nurse ___ Physician ___ Interlibrary Loan Services Librarian ___ Lithographic Photographer Apprentice ___ Other (describe below) Sacrament/Intervention _x__ Active listening ___ Anointing ___ Spiritism ___ Bereavement ___ Communion _x__ [place] exploration ___ ___ Life review _x__ Prayer ___ Reconciliation ___ Sacrament of Sick ___ Supportive presence ___ Wedding ___ Other (describe below) Pastoral Comments patient presents with a very positive attitude and outlook; pt is highly optimistic about her surgery, care, and future; pt identifies self as a Buddhist with good [place] community support; pt has family in the area as well; pt states that she has no needs but would like a prayer for support
[2023-02-02 13:02] VITALS: BP 136/65; PULSE 91; RESP 16; TEMP 36.7; O2SAT 96
[2023-02-02 13:22] VITALS: BMI 28.7
== END 2023-02-02 13:45 | disposition home or self-care (01) ==
LOC: SDC 08:20 → MS3 08:20
PROVIDERS: Anesthesiology; Admitting Provider Specialist; PCP Family Medicine; Referring Provider Specialist; Visit Provider Specialist
PROC: (CPT 27284; principal; 2023-02-01 07:05)
DX: M16.12 Unilateral primary osteoarthritis, left hip (principal); I10 Essential (primary) hypertension; Z87.891 Personal history of nicotine dependence; Z79.891 Long term (current) use of opiate analgesic; Z79.82 Long term (current) use of aspirin; E78.00 Pure hypercholesterolemia, unspecified; H91.90 Unspecified hearing loss, unspecified ear; E87.6 Hypokalemia; Z79.899 Other long term (current) drug therapy
CPT/HCPCS: 27130; 01214; 36415; 73501; 73502; 76000; 80048; 82040; 82962; 83735; 85025; 85027; 87081; 88305; 88311; 93005; 94668; 96361; 96365; 96366; 96372; 97162; 97166; 99221; 99252; C1776; J7120; G0378; G0463; J2405; J3475

== ENCOUNTER → 2024-02-09 | Outpatient (CLI) | payer MEDICARE, OTHER, SELFPAY ==
[2024-02-09 17:58] LABS: AST(SGOT) 19 U/L (15-37); Alanine Aminotransfer ALT/SGPT 19 U/L (13-56); Anion Gap 6 (5-15); BUN 9 mg/dL (7-18); BUN/Creat Ratio 9.6 RATIO (10-20); Calcium,Total 9.5 mg/dL (8.5-10.1); Chloride 107 mmol/L (98-107); Cholesterol 164 mg/dL (200); Creatinine, Serum 0.94 mg/dL (0.55-1.02); EST Glomerular Filtration Rate 61 mL/min (>60); Est Glom Filt Rate - Afr Amer 74 mL/min (>60); Glucose 92 mg/dL (74-106); High Density Lipoprotein 52 mg/dL; Potassium 3.6 mmol/L (3.5-5.1); Sodium Level 141 mmol/L (136-145); Triglycerides 123 mg/dL; Very Low Density Lipoprotein 25 mg/dL (5-40)
[2024-02-09 18:07] LABS: Protein, Urine (Random) 8.5 mg/dL (<11.9); Protein:Creat Ratio 73 mg/g CRE (0-200)
== END | disposition home or self-care (01) ==
LOC: MFPLAB 14:58
PROVIDERS: PCP Family Medicine; Visit Provider Family Medicine
DX: E78.5 Hyperlipidemia, unspecified (principal); I10 Essential (primary) hypertension
CPT/HCPCS: 36415; 80048; 80061; 82570; 84156; 84450; 84460

== ENCOUNTER → 2025-06-23 | Outpatient (CLI) | payer MEDICARE, OTHER, SELFPAY ==
[2025-06-23 17:53] LABS: Hematocrit 40.1 % (37-47); Hemoglobin 13.1 g/dL (12.0-15.0); Immature Granulocytes Count 0.020 X10^3/uL (0.0-0.0); Mean Corp Hgb Conc 32.7 g/dL (32-36); Mean Corpuscular Volume 95.2 fL (81-99); Mean Platelet Vol. 9.9 fl (6.2-12.0); NRBC Flagged by Analyzer 0 % (0-5); Platelet Count 400 K/mm3 (150-450); RBC Distribution Width CV 13.0 % (11.6-14.6); RBC Distribution Width SD 45.6 fl (35.1-43.9); Red Blood Count 4.21 M/mm3 (4.2-5.4); White Blood Count 8.0 K/mm3 (4.4-11.0)
[2025-06-23 18:14] LABS: AST(SGOT) 20 U/L (<=31); Alanine Aminotransfer ALT/SGPT 8 U/L (<=34); Albumin, Serum 4.3 g/dL (3.4-4.8); Alkaline Phosphatase 56 U/L (35-104); Anion Gap 12 (7-18); BUN 13 mg/dL (4-19); BUN/Creat Ratio 15.5 RATIO (10-20); Calcium,Total 9.5 mg/dL (7.6-11.0); Carbon Dioxide 27.1 mmol/L (20.0-29.0); Chloride 100 mmol/L (96-106); Globulin 2.8 g/dL (2.2-4.2); Glucose 98 mg/dL (70-99); Potassium 3.4 mmol/L (3.5-5.1)
[2025-06-23 18:24] LABS: Creatinine, Urine (random) 49.60 mg/dL (28.00-217.00); Microalbumin,Random Urine 14.3 mg/L (<20 mg/L)
== END | disposition home or self-care (01) ==
LOC: MFPLAB 14:42
PROVIDERS: PCP Family Medicine; Visit Provider Family Medicine
DX: Z12.5 Encounter for screening for malignant neoplasm of prostate (principal)
CPT/HCPCS: 36415; 80053; 82043; 82570; 85025